=== PATIENT | male | born 1965 | race Caucasian/White ===

== ENCOUNTER 2016-07-20 20:52 | Emergency (ER) | payer OTHER | END 2016-07-21 01:00 | disposition short-term general hospital (02) | LOC: ER 20:52 | DX: I26.99 Other pulmonary embolism without acute cor pulmonale (principal); R04.89 Hemorrhage from other sites in respiratory passages; F17.210 Nicotine dependence, cigarettes, uncomplicated | CPT/HCPCS: 36415 ==